=== PATIENT | male | born 1965 | race Caucasian/White ===

== ENCOUNTER → 2022-04-21 | Outpatient (CLI) | payer OTHER, SELFPAY ==
--- NOTE | 2022-04-21 07:07 | MRI_ITS ---
STUDY: MRI LEFT KNEE REASON FOR EXAM: Male, 56 years old. Pain. TECHNIQUE: Standardized fat and water weighted pulse sequences were obtained in all 3 orthogonal planes. COMPARISON: X-ray April 01, 2022 FINDINGS: There is medial meniscus tear of the posterior horn and body, series 5 images 09/04 through 01/05. There is signal heterogeneity within the articular cartilage of the medial femorotibial compartment without significant thinning and with an intact articular cartilage surface. Normal medial femoral condyle and tibial plateau. Normal medial collateral ligamentous complex (MCL). Normal distal semimembranosus, gracilis and semitendinosus tendons. Normal lateral meniscus. Normal hyaline cartilage of the lateral femorotibial compartment. Normal lateral femoral condyle and tibial plateau. Normal proximal tibiofibular articulation. Normal lateral collateral (fibular) ligament. Normal popliteus tendon. Normal biceps femoris tendon. There is edema with swelling and loss of definition of the of the ACL fascicles, producing a celery stick appearance, with preservation of the continuity of fibers, consistent with mucoid cystic degeneration. Normal posterior cruciate ligament (PCL). Normal congruent patellofemoral articulation. Normal hyaline cartilage of the patellofemoral compartment. Normal medial and lateral patellar retinaculum. Normal quadriceps tendon. Normal patellar tendon. Normal Hoffa''s fat pad. There is a moderate volume joint effusion. There is a 2.3 cm Pruett''s cyst. The soft tissues are unremarkable. The otherwise visualized osseous structures are unremarkable. MRI/Lower Ext Joint Only (Routine) IMPRESSION: Medial meniscus tear. 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 Joint effusion with popliteal cyst. Electronically Signed: Jose Luis Cho MD at 18:09 EST ,
== END | disposition home or self-care (01) ==
LOC: MRI 06:58
PROVIDERS: PCP Internal Medicine; Visit Provider Physician Assistant Surgical
DX: S80.02XA Contusion of left knee, initial encounter (principal)
CPT/HCPCS: 73721